=== PATIENT | male | born 1965 | race Hispanic/Latino ===

== ENCOUNTER 2018-10-09 18:04 | Emergency (ER) | payer OTHER, SELFPAY ==
[2018-10-09 18:51] LABS: #Basophils 0.1 thou/uL (0.0-0.2); #Eosinphils 0.2 thou/uL (0.0-0.7); #Lymphocytes 2.8 thou/uL (1.20-3.40); #Monocytes 0.7 thou/uL (0.11-0.59); #Neutrophils 6.6 thou/uL (1.40-6.50); %Basophils 0.9 % (0.0-1.0); %Lymphocytes 26.7 % (21.0-51.0); %Neutrophils 63.5 % (42.0-75.0); Hemoglobin 15.5 g/dL (14.0-18.0); Mean Corpuscular HGB CONC 33.5 g/dL (32.0-36.0); Mean Corpuscular Hemoglobin 30.8 pg (27.0-31.0); Mean Corpuscular Volume 91.9 fL (78.0-98.0); Mean Platelet Volume 8.3 fL (7.4-10.4); Platelet Count 131 thou/uL (130-400); RBC Distribution Width 12.6 % (11.5-14.5); Red Blood Cell (RBC) Count 5.03 mill/uL (4.70-6.10); White Blood Cell (WBC) Count 10.5 thou/uL (4.8-10.8)
[2018-10-09 19:16] LABS: ALT (SGPT) 238 U/L (8-55); AST (SGOT) 194 U/L (5-34); Albumin 3.8 g/dL (3.5-5.0); Alkaline Phosphatase 115 U/L (40-150); Anion Gap 14 mmol/L (10-20); BUN (Urea Nitrogen) 11 mg/dL (8.4-25.7); Bilirubin, Total 0.8 mg/dL (0.2-1.2); CK (CPK) 180 U/L (30-200); Calc. Creatinine Clearance 0 mL/min (70-130); Calcium 9.4 mg/dL (7.8-10.44); Carbon Dioxide 22 mmol/L (22-29); Chloride 102 mmol/L (98-107); Estimated GFR-MDRD Greater than 90; Globulin 4.1 g/dL (2.4-3.5); Glucose 136 mg/dL (70-105); Lipase 33 U/L (8-78); Potassium 3.9 mmol/L (3.5-5.1); Protein, Total 7.9 g/dL (6.0-8.3); Sodium 134 mmol/L (136-145)
--- NOTE | 2018-10-09 20:47 | RAD ---
FRONTAL RADIOGRAPH CHEST 10/09/18 COMPARISON: 08/26/15 AND 10/26/15. HISTORY: Dizziness and syncope. FINDINGS: There is minimal blunting of the right costophrenic angle, improved when compared to prior imaging. N o pneumothorax, lobar consolidation, or alveolar edema. There is atherosclerotic calcifications of th e aortic arch. IMPRESSION: No acute findings. POS: [facility]
[2018-10-09] MEDS ORDERED: Meclizine HCl 25 MG TAB ONE (21:36)
[2018-10-09] MEDS ORDERED: Metoclopramide HCl 10 MG/2 ML VIAL ONE (21:36)
--- NOTE | 2018-10-09 21:48 | CT ---
CT OF THE HEAD 10/09/18 COMPARISON: None. HISTORY: Dizziness. TECHNIQUE: Axial CT imaging at 5 mm intervals from vertex through skull base without contrast. FINDINGS: The imaged paranasal sinuses and mastoid air cells demonstrate no acute findings. There is atheroscle rotic calcification of the cavernous carotid arteries. There is no intracranial hemorrhage, midline s hift, mass effect or ventricular enlargement. IMPRESSION: No acute findings. POS: [facility]
[2018-10-09 22:25] LABS: Bilirubin Negative (Negative); Blood, Urine Negative (Negative); Clarity CLEAR (Clear); Glucose, Urine (Dipstick) Negative (Negative); Leukocyte Negative (Negative); Nitrite Negative (Negative); Protein, Urine (Dipstick) Negative (Neg-Trace); Specific Gravity, Urine 1.022 (1.002-1.036)
== END 2018-10-09 23:08 | disposition home or self-care (01) ==
LOC: ERS 18:04
DX: R42 Dizziness and giddiness (principal); E78.5 Hyperlipidemia, unspecified; I10 Essential (primary) hypertension; E11.9 Type 2 diabetes mellitus without complications; F17.210 Nicotine dependence, cigarettes, uncomplicated
CPT/HCPCS: 36415; 70450; 71045; 80053; 81003; 82550; 83605; 83690; 83880; 84484; 85025; 87086; 93005; 96365; J2765

== ENCOUNTER 2019-01-11 15:55 | Outpatient (CLI) | payer OTHER ==
--- NOTE | 2019-01-11 16:50 | RAD ---
Lumbar spine 2 views HISTORY: Low back pain. Cardiac silhouette there are only 4 lumbar type vertebrae. Pedicles are intact. Vertebral body height s are maintained. Pars defects are apparent at the lowest lumbar level. There is 1.2 cm spondylolisthesis at this level with disc space narrowing. Osteophytosis throughout the lower facets. IMPRESSION: Spondylolysis with grade 2 spondylolisthesis at the lumbosacral junction. Only 4 lumbar type vertebrae are evident. Great care must be taken with assigning lumbar levels on cr oss-sectional imaging. Degenerative changes lower lumbar spine.
== END 2019-01-11 15:56 | disposition home or self-care (01) ==
LOC: BICRAD 15:55
PROVIDERS: ATTEND Internal Medicine
DX: Z02.71 Encounter for disability determination (principal); M47.817 Spondylosis without myelopathy or radiculopathy, lumbosacral region; M43.17 Spondylolisthesis, lumbosacral region
CPT/HCPCS: 72100

== ENCOUNTER 2022-04-02 02:11 | Emergency (ER) | payer BC, SELFPAY ==
[2022-04-02] MEDS ORDERED: Ketorolac Tromethamine 30 MG/ML VIAL ONE (04:07)
== END 2022-04-02 05:28 | disposition home or self-care (01) ==
LOC: ERS 02:11
DX: S63.92XA Sprain of unspecified part of left wrist and hand, initial encounter (principal); E78.5 Hyperlipidemia, unspecified; E78.00 Pure hypercholesterolemia, unspecified; I10 Essential (primary) hypertension; E11.9 Type 2 diabetes mellitus without complications; F17.210 Nicotine dependence, cigarettes, uncomplicated; X50.0XXA Overexertion from strenuous movement or load, initial encounter
CPT/HCPCS: 96372; J1885

== ENCOUNTER 2025-04-17 09:07 | Outpatient (CLI) | payer BC | END 2025-04-17 09:08 | disposition home or self-care (01) | LOC: BICULT 09:07 | PROVIDERS: ATTEND Internal Medicine | DX: R14.0 Abdominal distension (gaseous) (principal); B18.2 Chronic viral hepatitis C; D50.9 Iron deficiency anemia, unspecified; R18.8 Other ascites; R16.1 Splenomegaly, not elsewhere classified; Z90.49 Acquired absence of other specified parts of digestive tract | CPT/HCPCS: 76700 ==

== ENCOUNTER 2025-05-05 12:37 | Day surgery (SDC) | payer BC ==
[2025-05-05] MEDS ORDERED: Lidocaine 1% PF 5 ML VIAL ONE (12:45)
[2025-05-05] MEDS ORDERED: Sodium Bicarbonate 2.5 MEQ/5 ML SDV ONE (12:45)
[2025-05-05 13:16] LABS: #Basophils 0.04 10x3/uL (0.0-0.2); #Eosinophils 0.41 10x3/uL (0.0-0.7); #Monocytes 0.58 10x3/uL (0.11-0.59); #Neutrophils 3.57 10x3/uL (1.40-6.50); %Basophils 0.7 % (0.0-1.0); %Eosinophils 7.6 % (0.0-10.0); %Lymphocytes 14.5 % (21.0-51.0); %Monocytes 10.8 % (0.0-10.0); %Neutrophils 66.2 % (42.0-75.0); Hematocrit 34.0 % (42.0-52.0); Hemoglobin 10.0 g/dL (14.0-18.0); Mean Corpuscular Hemoglobin 21.2 pg (27.0-31.0); Mean Corpuscular Volume 72.0 fL (78.0-98.0); Platelet Count 159 10x3/uL (130-400); Red Blood Cell (RBC) Count 4.72 mill/uL (4.70-6.10); White Blood Cell (WBC) Count 5.39 10x3/uL (4.8-10.8)
[2025-05-05 13:30] LABS: INR-International Normal Ratio 1.3; PTT 34.5 sec (22.9-36.1); Prothrombin Time 16.2 sec (12.0-14.7)
[2025-05-05 15:26] LABS: Anisocytosis SLIGHT = 6-15 cells HPF (0-5); Burr Cells SLIGHT = 2-5 cells HPF (0-1); Macrocytosis SLIGHT = 6-15 cells HPF (0-5); Microcytosis MODERATE=15-30 cells HPF (0-5); Ovalocytes SLIGHT = 2-5 cells HPF (0-1); Platelet Adequacy Comment Platelets Normal; Polychromasia SLIGHT = 2-3 cells HPF (0-2)
[2025-05-05 17:27] LABS: RBC Count-Automated (BF) 1637 /cu.mm; WBC/Nucleated-Auto (BF) 324 /cu.mm
[2025-05-05 17:38] LABS: BF Segmented Neutrophils 20 %; Cell Count Non Hematic 64 %
== END 2025-05-05 15:10 | disposition home or self-care (01) ==
LOC: ULT 12:37
PROVIDERS: ATTEND Internal Medicine
PROC: 0W9G3ZZ Drainage of Peritoneal Cavity, Percutaneous Approach (ICD-10-PCS; principal; 2025-05-05)
DX: R18.8 Other ascites (principal); F17.210 Nicotine dependence, cigarettes, uncomplicated
CPT/HCPCS: 36000; 36415; 49083; 82042; 84155; 85025; 85060; 85610; 85730; 87070; 87205; 88112; 88305; 89051; P9047

== ENCOUNTER 2025-06-06 15:10 | Outpatient (CLI) | payer BC | END 2025-06-06 15:11 | disposition home or self-care (01) | LOC: ULT 15:10 | PROVIDERS: ATTEND Internal Medicine | DX: B18.2 Chronic viral hepatitis C (principal); I85.00 Esophageal varices without bleeding; I86.4 Gastric varices; K63.5 Polyp of colon; D50.9 Iron deficiency anemia, unspecified; R18.8 Other ascites | CPT/HCPCS: 93970 ==

== ENCOUNTER 2025-06-18 07:41 | Outpatient (CLI) | payer BC | END 2025-06-18 07:42 | disposition home or self-care (01) | LOC: CT 07:41 | PROVIDERS: ATTEND Family Medicine | DX: Z12.2 Encounter for screening for malignant neoplasm of respiratory organs (principal); F17.210 Nicotine dependence, cigarettes, uncomplicated; R18.8 Other ascites | CPT/HCPCS: 71271 ==